=== PATIENT | male | born 1975 | race Caucasian/White ===

== ENCOUNTER 2016-12-20 04:44 | Emergency (ER) | payer OTHER ==
[~2016-12-20] VITALS: Ht 180.3 cm; Wt 96.3 kg
[~2016-12-20 04:44] MED LIST: CLONAZEPAM0.25 MG PO; LEXAPRO5 MG PO; VICODIN,LORT1 TABLET PO
[2016-12-20 05:44] LABS: HEMATOCRIT 50.1 % (38.0-50.0); MCH 29.4 PG (29.0-34.0); MCHC 32.9 G/DL (30.0-36.0); MCV 89.3 FL (86-99); MEAN PLAT.VOLUME 9.8 uM^3 (9.0-12.4); PLATELET COUNT 259 K/uL (156-360); RBC DIS.WIDTH-SD 41.9 % (39-53); RED BLOOD COUNT 5.61 M/uL (4.00-5.50); WHITE BLOOD COUNT 7.4 K/uL (4.1-10.2)
[2016-12-20 05:47] LABS: CHLORIDE 106 mEq/L (99-109); POTASSIUM 3.3 mEq/L (3.7-5.4); SODIUM 141 mEq/L (136-147)
[2016-12-20 05:49] LABS: GLUCOSE 110 mg/dL (70-99)
[2016-12-20 05:50] LABS: ANION GAP 9 MEQ/L (2-14)
[2016-12-20 05:51] LABS: TOTAL BILIRUBIN 0.6 mg/dL (0.0-1.0)
[2016-12-20 05:53] LABS: ALKALINE PHOSPHATASE 93 IU/L (3-129); GFR ESTIMATE (CALCULATED) > 59 mL/min/; TROP-I INTERPRETATION NEGATIVE; TROPONIN-I < 0.01 ng/mL (0.0-0.30)
[2016-12-20 05:54] LABS: UREA NITROGEN (BUN) 10 mg/dL (9-23)
[2016-12-20 05:56] LABS: LIPASE 31 U/L (1.0-51.0)
[2016-12-20 06:04] LABS: D-DIMER ELISA 0.22 mg/L FEU (< 0.57)
[2016-12-20 06:54] LABS: TROP-I INTERPRETATION NEGATIVE; TROPONIN-I < 0.01 ng/mL (0.0-0.30)
[2016-12-20] MEDS ORDERED: AZITHROMYCIN250 MG PO (07:06)
[2016-12-20] MEDS ORDERED: VENTOLIN HFA18 GM IH (07:06)
[2016-12-20 07:45] VITALS: BP 164/127
== END 2016-12-20 07:47 | disposition home or self-care (01) ==
LOC: EME 04:44
PROVIDERS: Emergency Medicine
DX: R07.89 Other chest pain (principal); J20.9 Acute bronchitis, unspecified; R74.0 Nonspecific elevation of levels of transaminase and lactic acid dehydrogenase [LDH]; I10 Essential (primary) hypertension
CPT/HCPCS: 71020; 80053; 81003; 83690; 84484; 85027; 85379; 93005; 94640; 99281; 99284